=== PATIENT | male | born 1995 | race Asian ===

== ENCOUNTER 2017-12-02 14:10 | Inpatient (IN) | payer OTHER ==
[~2017-12-02] VITALS: Ht 182.9 cm; Wt 60.8 kg
[2017-12-02 15:13] LABS: BASO % 0.2 %; BASO ABS # 0.01 K/uL (0-0.2); EOS % 2.4 %; EOS ABS # 0.11 K/uL (0-0.5); HEMATOCRIT 45.1 % (42-52); HEMOGLOBIN 15.8 g/dL (14.0-18.0); IG# 0.01 K/uL (0.00-0.02); LYMPH % 40.6 %; LYMPH ABS # 1.87 K/uL (1.2-3.4); MEAN CELL VOLUME 87.6 fL (80-100); MEAN CORPUSCULAR HEMOGLOBIN 30.7 pg (25-34); MEAN PLATELET VOLUME 10.3 fL (7.4-10.4); MONO % 9.5 %; MONO ABS # 0.44 K/uL (0.11-0.59); NEUT % 47.1 %; NEUT ABS # 2.17 K/uL (1.4-6.5); PLATELET COUNT 232 K/uL (130-400); RED CELL DISTRIBUTION WIDTH CV 13.1 % (11.5-14.5); WHITE BLOOD COUNT 4.61 K/uL (4.8-10.8)
[2017-12-02 15:31] LABS: ALBUMIN 4.3 gm/dl (3.4-5.0); CALCIUM 8.7 mg/dl (8.5-10.1); CREATININE 0.93 mg/dl (0.60-1.40); POTASSIUM 3.5 mmol/L (3.5-5.1)
--- NOTE | 2017-12-02 15:34 | EMERGENCY ROOM VISIT NOTE ---
History Report prepared by Rachel: Kaylee Omer Under the Supervision of: Dr. Cullen Miranda D.O. First contact with patient: 14:19 Chief Complaint: MENTAL HEALTH EVALUATION Stated Complaint: MENTAL HEALTH History of Present Illness The patient is a 22 year old male who presents to the Emergency Room for a mental health evaluation. The patient is currently a [employer] student. He states that he has been very stressed recently particularly about graduating and finding a job. He does not have a job lined up after graduation and states that this is his main concern. He has been having suicidal thoughts and admits to thinking about jumping off of the roof of a parking garage to kill himself. He states that he has been having thoughts but denies any intention of acting on them. These suicidal thoughts come and go as his stress level fluctuates. He denies any previous suicide attempts. He also reports trouble sleeping. He has been eating and drinking normally. Pt denies any mental health history. Pt denies headache, fevers, chest pain, shortness of breath, nausea, vomiting, diarrhea, and urinary symptoms. The patient was seen at [facility] yesterday and today. [facility] was concerned about his safety today and recommended that he come to the ED for a mental health evaluation. The patient was brought to the ED by [place] police. He was unwilling to come to the ED so a 302 petition was signed. Source of History: patient, treating provider Onset: [employer] Position: other (mental health) Quality: other (suicidal) Timing: worsening Modifying Factors (Worsening): other (stress) Associated Symptoms: No fevers, No headache, No chest pain, No SOB, No nausea, No vomiting, No diarrhea, No urinary symptoms Note: Pt admits to SI and trouble sleeping. Review of Systems See HPI for pertinent positives & negatives. A total of 10 systems reviewed and were otherwise negative. Past Medical & Surgical Medical Problems: (1) Right ankle sprain Family History No pertinent history stated. Social History Smoking Status: Never Smoker Occupation Status: [employer] student Current/Historical Medications No Active Prescriptions or Reported Meds Allergies Coded Allergies: No Known Allergies (Unverified , 12/02/17) Physical Exam Vital Signs Date Time Temp Pulse Resp B/P (MAP) Pulse Ox O2 Delivery O2 Flow Rate FiO2 12/02/17 20:41 36.6 85 18 115/59 100 Room Air 12/02/17 16:00 78 18 114/70 100 12/02/17 14:13 36.7 95 18 119/80 100 Room Air Physical Exam GENERAL: Sitting up in bed, alert, well appearing, well nourished, no distress, non-toxic EYE EXAM: normal conjunctiva OROPHARYNX: no exudate, no erythema, lips, buccal mucosa, and tongue normal and mucous membranes are moist NECK: supple, no nuchal rigidity, no adenopathy, non-tender LUNGS: Clear to auscultation. Normal chest wall mechanics HEART: no murmurs, S1 normal and S2 normal ABDOMEN: abdomen soft, non-tender, normo-active bowel sounds, no masses, no rebound or guarding. BACK: Back is symmetrical on inspection and there is no deformity, no midline tenderness, no CVA tenderness. SKIN: no rashes and no bruising UPPER EXTREMITIES: upper extremities are grossly normal. LOWER EXTREMITIES: No pitting edema. NEURO EXAM: Normal sensorium, cranial nerves II-XII grossly intact, normal speech, no gross weakness of arms, no gross weakness of legs. PSYCH: Admits to suicidal thoughts with a plan of jumping off a building. Medical Decision & Procedures Laboratory Results 12/02/17 14:56 Red Blood Count 5.15, Mean Corpuscular Volume 87.6, Mean Corpuscular Hemoglobin 30.7, Mean Corpuscular Hemoglobin Concent 35.0, Mean Platelet Volume 10.3, Neutrophils (%) (Auto) 47.1, Lymphocytes (%) (Auto) 40.6, Monocytes (%) (Auto) 9.5, Eosinophils (%) (Auto) 2.4, Basophils (%) (Auto) 0.2, Neutrophils # (Auto) 2.17, Lymphocytes # (Auto) 1.87, Monocytes # (Auto) 0.44, Eosinophils # (Auto) 0.11, Basophils # (Auto) 0.01 12/02/17 14:56 Test 12/02/17 14:56 12/02/17 15:25 White Blood Count 4.61 K/uL (4.8-10.8) Red Blood Count 5.15 M/uL (4.7-6.1) Hemoglobin 15.8 g/dL (14.0-18.0) Hematocrit 45.1 % (42-52) Mean Corpuscular Volume 87.6 fL (80-100) Mean Corpuscular Hemoglobin 30.7 pg (25-34) Mean Corpuscular Hemoglobin Concent 35.0 g/dl (32-36) Platelet Count 232 K/uL (130-400) Mean Platelet Volume 10.3 fL (7.4-10.4) Neutrophils (%) (Auto) 47.1 % Lymphocytes (%) (Auto) 40.6 % Monocytes (%) (Auto) 9.5 % Eosinophils (%) (Auto) 2.4 % Basophils (%) (Auto) 0.2 % Neutrophils # (Auto) 2.17 K/uL (1.4-6.5) Lymphocytes # (Auto) 1.87 K/uL (1.2-3.4) Monocytes # (Auto) 0.44 K/uL (0.11-0.59) Eosinophils # (Auto) 0.11 K/uL (0-0.5) Basophils # (Auto) 0.01 K/uL (0-0.2) RDW Standard Deviation 42.0 fL (36.4-46.3) RDW Coefficient of Variation 13.1 % (11.5-14.5) Immature Granulocyte % (Auto) 0.2 % Immature Granulocyte # (Auto) 0.01 K/uL (0.00-0.02) Anion Gap 7.0 mmol/L (3-11) Est Creatinine Clear Calc Drug Dose 112.8 ml/min Estimated GFR () 134.6 Estimated GFR (Non- 116.1 BUN/Creatinine Ratio 16.4 (10-20) Calcium Level 8.7 mg/dl (8.5-10.1) Total Bilirubin 1.2 mg/dl (0.2-1) Direct Bilirubin 0.2 mg/dl (0-0.2) Aspartate Amino Transf (AST/SGOT) 15 U/L (15-37) Alanine Aminotransferase (ALT/SGPT) 17 U/L (12-78) Alkaline Phosphatase 87 U/L (45-117) Total Protein 7.7 gm/dl (6.4-8.2) Albumin 4.3 gm/dl (3.4-5.0) Thyroid Stimulating Hormone (TSH) 1.170 uIu/ml (0.300-4.500) Ethyl Alcohol mg/dL < 3.0 mg/dl (0-3) Urine Color YELLOW Urine Appearance CLEAR (CLEAR) Urine pH 6.0 (4.5-7.5) Urine Specific [place] 1.026 (1.000-1.030) Urine Protein NEG (NEG) Urine Glucose (UA) NEG (NEG) Urine Ketones TRACE (NEG) Urine Occult Blood NEG (NEG) Urine Nitrite NEG (NEG) Urine Bilirubin NEG (NEG) Urine Urobilinogen NEG (NEG) Urine Leukocyte Esterase NEG (NEG) Urine Opiates Screen NEG (NEG) Urine Methadone, Qualitative NEG (NEG) Urine Barbiturates NEG (NEG) Urine Phencyclidine (PCP) Level NEG (NEG) Ur Amphetamine/Methamphetamine NEG (NEG) MDMA (Ecstasy) Screen NEG (NEG) Urine Benzodiazepines Screen NEG (NEG) Urine Cocaine Metabolite NEG (NEG) Urine Marijuana (THC) NEG (NEG) Laboratory results per my review. ED Course ED COURSE: Vital signs were reviewed and showed normal vitals. The patients medical record was reviewed The above diagnostic studies were performed and reviewed. ED treatments and interventions as stated above. 1422: The patient was evaluated in room A8. A complete history and physical examination was performed. 1750: Upon reevaluation, the patient is resting comfortably. I tried to explain the difference between a 302 vs a 201. The patient did not comprehend so the psychiatric liaison will go back in to explain again. Based on the patients age, coexisting illnesses, exam and lab findings the decision to treat as an inpatient was made. The patient remained stable while under my care. The patient will be evaluated for further management. 2033: The patient has been accepted to [facility] for further management. Medical Decision Differential diagnosis: Etiologies such as mood disorder, infection, hypoglycemia, electrolyte abnormalities, cardiac sources, intracerebral event, toxicologic, neurologic, as well as others were entertained. Patient is a 22-year-old male who presents to ER referred in by As He Admitted to Having Suicidal Ideations with a Plan of Jumping off a Parking Garage. He Admits to Having These Thoughts before in the past. Patient Notes That He Does Not Want to Stay Would Rather Go Home As He Has To Meet His Parents This Weekend. He Has Been Very Stressful Multiple Things. CBC All BMP, LFTs, Bilirubin and TSH Was Normal. Alcohol Is Negative. UA Was Negative. Patient Was Updated at Bedside. He Was Evaluated by Kaelyn. He Did Not Want to Come in and consequently a 302 petition was signed. She was updated at bedside by myself. He was admitted for further workup on . Medication Reconcilliation Current Medication List: was personally reviewed by me Blood Pressure Screening Patient's blood pressure: Normal blood pressure Impression Primary Impression: Suicidal ideation Scribe Attestation The scribe's documentation has been prepared under my direction and personally reviewed by me in its entirety. I confirm that the note above accurately reflects all work, treatment, procedures, and medical decision making performed by me. Departure Information Dispostion Mental Health Acute Care Prescriptions No Active Prescriptions or Reported Meds Referrals No Doctor, Assigned (PCP) Patient Instructions [facility]
[2017-12-02 15:42] LABS: TOTAL PROTEIN 7.7 gm/dl (6.4-8.2)
[2017-12-02] MEDS ORDERED: NURSING VERBAL MED ORDER ONE (20:30)
[2017-12-02 20:41] VITALS: O2SAT 100
[2017-12-02] MEDS ORDERED: ALUMINUM/MAGNESIUM SUSP 30 ML UDC PO PRN (20:45)
[2017-12-02] MEDS ORDERED: SODIUM CHLORIDE 0.65% NA SOLN 45 ML (OCEAN) PRN (20:45)
[2017-12-02] MEDS ORDERED: hydrOXYzine HCL 25 MG TAB PO PRN (20:45)
[2017-12-02] MEDS ORDERED: BISMUTH SUBSALICYLATE PER ML OMNICELL CHARGE PO PRN (20:45)
[2017-12-02] MEDS ORDERED: MAGNESIUM HYDROXIDE SUSP 30 ML UDC PO PRN (20:45)
[2017-12-02] MEDS ORDERED: ACETAMINOPHEN 325 MG TAB PO PRN (20:45)
[2017-12-02 21:32] VITALS: BP 120/75; PULSE 88; TEMP 36.7; Ht 182.9 cm; Wt 60.8 kg
[2017-12-03] MEDS: hydrOXYzine HCL 25 MG TAB PO PRN ×2 (00:03→01:37)
[2017-12-03 07:08] VITALS: BP_SYST 101; BP_SYST 117; BP_DIAS 60; BP_DIAS 81; PULSE 65; PULSE 80; TEMP 36.8
--- NOTE | 2017-12-03 13:00 | Psychiatric History & Physical ---
History Date of Service Dec 03, 2017. Identifying Data Juan Berry is a 22-year-old male [employer] senior admitted involuntarily on Dec 02, 2017 at 20:27 after being brought to the emergency department on a warrant completed by [facility] due to reports of depression with suicidality. Information is gathered from the patient and considered to be reliable. Chief Complaint "Stress post graduation". 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 He says that he has been under stress because he is to graduate this semester, but does not yet have a job. He feels some pressure from his family to get a job and says that he is struggling because "I'm not a talker" and in interviews is not performing well. He also says that he is having difficulty "keeping relationships" but denies that this is a primary stressor. The patient has been increasingly depressed, having thoughts of suicide and on December 01 presented to [facility] to see about getting a counselor. He was given an appointment for December 02 at which point he saw Lien Marino PhD And told her that he was depressed, felt useless to the world felt that life was boring, and was having specific thoughts to access the roof of the parking deck and jump. He admitted that he had researched this, that that would be the least painful means of committing suicide. He also reported to her that his depression got worse on the , after coming to [facility], because his girlfriend broke up with him. A 302 petition her statement was filled out by Lien Marino at that time, a warrant was issued, and the patient was brought to our emergency department. Today the patient is somewhat distressed about being in the hospital and minimizing his symptoms. He admits that he is having suicidal thoughts, but it' s not the first time, and he has no plan or intent to follow through. He admits that the pressure from his parents to get a job as a primary problem. His parents are from [place], speaks no Croatian but are currently in [place], with plans to come here to see him. He is an only child, and feels a great deal of pressure to get a job. He says he has spoken with his parents about the difficulty finding a job and they tell him to keep trying. In their culture , it is not acceptable to be depressed and not acceptable not to succeed. He says they do not acknowledge mental illness and do not support the use of medications. He does not want his parents to know he is in the hospital, at least of all for mental health reasons. He does not want to involve his roommates or any of his friends in his treatment. Today he describes his mood as "low" but does not want to use the word depressed. He reports disturbed sleep with difficulty falling asleep, sometimes laying awake thinking until 4:00 in the morning. He generally finds he gets 4 or 5 hours of sleep per night and finds this acceptable. His appetite has been "not very hungry", eating 2 meals per day and having a small weight loss that is unspecified. His energy is "high" and enjoys playing basketball 3 times per week. He denies crying spells. He does acknowledge some anxiety, specific to his job search concerns. He used to cope with this by playing a lot of video games which she has not been doing lately he denies ever having had any auditory or visual hallucinations. He denies having had panic attacks. He denies self-injurious behaviors. He denies any bipolar symptoms including discrete episodes of euphoric mood, sleeplessness or pleasure seeking behaviors. Past Psychiatric History Current OP Treatment: no current treatment Prior OP Treatment: no prior treatment Prior Psych Hospitalizations: none Access to a Gun: No Suicide Attempts: No Past Medication Trials None Past Medical/Surgical History History of Concussion/Seizure: No (1) none Allergies Allergies: Coded Allergies: No Known Allergies (Unverified , 12/02/17) Home Medications No Active Prescriptions or Reported Meds Family History History of Suicide: No History of Substance Abuse: No Psychiatric History: No Alcohol Use Alcohol Use In Past 12 Months: Yes (2-3x/week; approx 1-2 glasses of wine) AUDIT Total Score: 3 Smoking Use Smoking Status: Never Smoker Substance History Denies Personal History [place] Childhood: Raised in [place] by both parents. He is an only child Education: started college (will graduate in March with a degree in mechanical engineering) Work History: Does not work outside of school Relationship History: never Children: none Legal History: none Psychological Trauma History: Denies Hx Traumatic Event Review of Systems Constitutional: denies no symptoms reported, denies see HPI, denies chills, denies diaphoresis, denies fever, denies malaise, denies weakness, denies other Eyes: denies: no symptoms, as stated in HPI, eye pain, tearing, itching, redness, discharge, double vision, visual changes, blurred vision, photophobia, other ENT: denies: no symptoms reported, see HPI, ear pain, ear discharge, loss of hearing, tinnitus, nasal pain, nasal congestion, rhinorrhea, epistaxis, sore throat, stidor, throat swelling, mouth pain, mouth swelling, dental pain, gum swelling, other Cardiovascular: denies: no symptoms reported, see HPI, chest pain, chest tightness, chest pressure, diaphoresis, palpitations, syncope, other Respiratory: denies: no symptoms reported, see HPI, cough, orthopnea, short of breath, stridor, wheezing, sputum production, cyanosis, CLARK, PND, other Gastrointestinal: denies no symptoms reported, denies see HPI, denies abdominal pain, denies constipation, denies diarrhea, denies nausea, denies vomiting, denies other Genitourinary - Male: denies: no symptoms, see HPI, rash, amenorrhea, penile itching, penile discharge, testicular pain, testicular swelling, impotence, other Musculoskeletal: denies no symptoms reported, denies see HPI, denies back pain , denies gout, denies joint pain, denies joint swelling, denies muscle pain, denies muscle stiffness, denies neck pain, denies other Integumentary: denies no symptoms reported, denies see HPI, denies change in color, denies change in hair/nails, denies dryness, denies lesions, denies lumps , denies rash, denies other Neurologic: denies: no symptoms, see HPI, headache, numbness, paresthesias, pre -existing deficit, seizure, tingling, tremors, general weakness, tics, focal weakness, vertigo, lethargy, memory loss, dizziness, other Endocrine: denies: no symptoms, as stated in HPI, cold intolerance, heat intolerance, hair changes, goiter, polydipsia, polyuria, skin changes, other Hematologic / Lymphatic: denies: no symptoms, as stated in HPI, abnormal clotting, adenopathy, anemia, easy bleeding, easy bruising, gums bleeding, petechiae, other Examination Physical Examination Exam performed by Dr. Miranda in the emergency Department has been reviewed and accepted as medical clearance for our unit Vital Signs Vital Signs Past 12 Hours Date Time Temp Pulse Resp B/P (MAP) Pulse Ox O2 Delivery O2 Flow Rate FiO2 12/03/17 07:08 36.8 65 16 101/60 80 117/81 Laboratory Results Last 24 Hours Test 12/02/17 14:56 12/02/17 15:25 White Blood Count 4.61 K/uL Red Blood Count 5.15 M/uL Hemoglobin 15.8 g/dL Hematocrit 45.1 % Mean Corpuscular Volume 87.6 fL Mean Corpuscular Hemoglobin 30.7 pg Mean Corpuscular Hemoglobin Concent 35.0 g/dl Platelet Count 232 K/uL Mean Platelet Volume 10.3 fL Neutrophils (%) (Auto) 47.1 % Lymphocytes (%) (Auto) 40.6 % Monocytes (%) (Auto) 9.5 % Eosinophils (%) (Auto) 2.4 % Basophils (%) (Auto) 0.2 % Neutrophils # (Auto) 2.17 K/uL Lymphocytes # (Auto) 1.87 K/uL Monocytes # (Auto) 0.44 K/uL Eosinophils # (Auto) 0.11 K/uL Basophils # (Auto) 0.01 K/uL RDW Standard Deviation 42.0 fL RDW Coefficient of Variation 13.1 % Immature Granulocyte % (Auto) 0.2 % Immature Granulocyte # (Auto) 0.01 K/uL Sodium Level 138 mmol/L Potassium Level 3.5 mmol/L Chloride Level 105 mmol/L Carbon Dioxide Level 26 mmol/L Anion Gap 7.0 mmol/L Blood Urea Nitrogen 15 mg/dl Creatinine 0.93 mg/dl Est Creatinine Clear Calc Drug Dose 112.8 ml/min Estimated GFR () 134.6 Estimated GFR (Non- 116.1 BUN/Creatinine Ratio 16.4 Random Glucose 88 mg/dl Calcium Level 8.7 mg/dl Total Bilirubin 1.2 mg/dl Direct Bilirubin 0.2 mg/dl Aspartate Amino Transf (AST/SGOT) 15 U/L Alanine Aminotransferase (ALT/SGPT) 17 U/L Alkaline Phosphatase 87 U/L Total Protein 7.7 gm/dl Albumin 4.3 gm/dl Thyroid Stimulating Hormone (TSH) 1.170 uIu/ml Ethyl Alcohol mg/dL < 3.0 mg/dl Urine Color YELLOW Urine Appearance CLEAR Urine pH 6.0 Urine Specific [place] 1.026 Urine Protein NEG Urine Glucose (UA) NEG Urine Ketones TRACE Urine Occult Blood NEG Urine Nitrite NEG Urine Bilirubin NEG Urine Urobilinogen NEG Urine Leukocyte Esterase NEG Urine Opiates Screen NEG Urine Methadone, Qualitative NEG Urine Barbiturates NEG Urine Phencyclidine (PCP) Level NEG Ur Amphetamine/Methamphetamine NEG MDMA (Ecstasy) Screen NEG Urine Benzodiazepines Screen NEG Urine Cocaine Metabolite NEG Urine Marijuana (THC) NEG Mental Examination During interview pt is: alert and oriented, guarded Appearance: appropriately dressed, appropriately groomed Eye contact is: good Motor behavior is: no abnormal motor movements Speech: normal in rate, rhythm & volume (with accent) Affect: blunted, anxious Mood is: depressed, anxious Thought process: goal directed Thought content: reality based without delusions Suicidal thought are: present, Plan: present, Intent: denied Homicidal thoughts are: denied Hallucinations: denies auditory, denies visual Cognition: memory grossly intact, attention grossly intact, language grossly intact Intelligence estimated to be: average Insight: impaired Judgement: impaired Impression / Recommendations Impression 22-year-old [employer] student, admitted in voluntarily with depression and suicidality. The patient is attempting to minimize his symptoms today as he is shameful about his depression not wanting anyone to know. There is a significant cultural overlay to this and he also does not want his parents involved in his treatment. He wants to say that he has suicidal thoughts but no intent to follow through and has a certain degree of anger that the therapist at [facility] was focused on his suicidality and not his desire to get a therapist. He does not want to consider medications despite our discussion about the benefits of such in severe depression. He is willing for a talk therapist but is not at this point willing to complete a robust safety plan which would include having people know that he is here. I've asked him to reconsider this and reconsider involving his parents as it is as much stress to keep a secret as it is to tell them he is here. There was no act in furtherance and so he will not meet criteria for a 303 commitment. Our plan will be to develop a safety plan, incorporate the office of student affairs and continue to encourage him to involve his parents. At this time, the patient requires inpatient mental health treatment due to the acuity of his suicidal thinking with a specific plan, and the risk for self-harm if discharged. Inventory Assets Strengths: Intelligence, about to graduate from college Needs: To be connected to people Risk Factors Assessment Male: Yes : No /single/: Yes Higher / Fall in social status: No Access to guns: No Health problems: No Mental Health Diagnoses: No Substance use disorders: No Previous attempt: No Previous psychiatric stay: No Hopelessness: No Smoker: No Protective Factors Assessment : No Responsible for young children: No Employed: No Stable relationships: No Supportive family: No Recommendations (1) Major depressive disorder, single episode, severe without psychosis 12/03 - I have recommended a trial of an antidepressant which the patient declines - Coordinate with the office of student affairs - Every 15 minute checks for safety - Encourage the patient to inform his parents that he is here and have a family meeting with the seed packer - Encourage participation in group and individual counseling - The patient is here on a 302 so we will continue to gather information toward the need for further inpatient treatment - The patient will need psychiatric follow-up Dr. Nena Carrillo has personally been involved in the review of the above case and development of these recommendations. CPT Code Initial Hospital Care: 33470
[2017-12-04 06:38] VITALS: BP_SYST 100; BP_SYST 91; BP_DIAS 55; BP_DIAS 64; PULSE 54; PULSE 69; TEMP 36.4
--- NOTE | 2017-12-04 12:17 | Psychiatric Progress Notes ---
Progress Note Date of Service Dec 04, 2017. Interval History Juan Nina" is a 22-year-old male [facility] senior admitted involuntarily on Dec 02, 2017 at 20:27 after being brought to the emergency department on a warrant completed by [employer] due to reports of depression with suicidality. Information is gathered from the patient and considered to be reliable. Chief Complaint "Pretty Good". Subjective Patient was seen & assessed interval progress reviewed with Nursing. Staff reports patient has a preference to remain in the quiet room as he has been uncomfortable sharing a room while here on the unit. Staff feels the patient continues to minimize his symptoms as he is eager to return to his classes. Pt was seen today to assess progress since admission. He reports he is doing "pretty good" and has noticed improvement in his mood since his admission. He denies ongoing SI and feels that sitting in on therapy has been helpful and provides him with things to think about. Pt is direct and minimal with conversation and does not elaborate on open-ended questioning, even with encouragement. He continues to refuse the recommendation of medications and declines patient information on specific medication choices. He is questioning timeline for discharge and was informed this would become more clear after treatment team in the morning. Pt denies SI/HI at this encounter. He denies other questions or concerns today. Review of Systems Psych: denies symptoms other than stated above Constitutional: denied Cardiovascular: denied GI: denied Neurologic: denied Remainder of 10 body systems also reviewed and denied other than noted above. Sleep Information Total Hours of Sleep: 7.00 Meal Information Percent of Breakfast Consumed: 100 Percent of Lunch Consumed: 100 Percent of Dinner Consumed: 10 Mental Status Exam During interview pt is: alert and oriented, guarded (minimal participation during encounter) Appearance: appropriately dressed, appropriately groomed Eye contact is: good Motor behavior is: no abnormal motor movements Speech: normal in rate, rhythm & volume (limited elaboration with open-ended questioning) Affect: blunted, anxious Mood is: depressed, anxious, other (incongruent to his reports of "pretty good ") Thought process: goal directed, clear, coherent Thought content: reality based without delusions Suicidal thought are: denied (at this encounter, limited willingness to discuss ), Plan: present, Intent: denied Homicidal thoughts are: denied Hallucinations: denies auditory, denies visual Cognition: memory grossly intact, attention grossly intact, language grossly intact Intelligence estimated to be: average Insight: limited Judgement: limited Impression Pt reports continued improvement. He is unwilling for medications at this time , but states he would be willing to continue to see a therapist occasionally. Ongoing desire to not want his parents involved in his treatment. Pt states they have worked on safety planning during group, but to my understanding, pt has not shared about his admission with friends or family. Our plan would be to encourage him to involve his parents which would help him create an adequate safety plan. With current reported improvement in symptoms, it is unlikely that patient will meet criteria for 303 commitment. At this time, the patient requires inpatient mental health treatment due to the severity of his SI and specific plan, and the risk for self-harm if discharged prematurely Plan (1) Major depressive disorder, single episode, severe without psychosis 12/03 - I have recommended a trial of an antidepressant which the patient declines - Coordinate with the office of student affairs - Every 15 minute checks for safety - Encourage the patient to inform his parents that he is here and have a family meeting with the business line controller - Encourage participation in group and individual counseling - The patient is here on a 302 so we will continue to gather information toward the need for further inpatient treatment - The patient will need psychiatric follow-up 12/04 - Pt continues to decline medications for his depressive symptoms - Encourage patient communicate with his parents about his admission - Continue to encourage participation in group programming while on the unit. Dr. Nena Carrillo has personally been involved in the review of the above case and development of these recommendations. Discharge / Aftercare Planning Primary Care Physician: Name: [facility] Therapist: Name: PHILIP Special Procedures Tech: Name: Renetta Titus ([facility]) Visit Code E&M Code: 42698 Inventory Assets Strengths: Intelligence, about to graduate from college Needs: To be connected to people Risk Factors Assessment Male: Yes : No /single/: Yes Higher / Fall in social status: No Health problems: No Mental Health Diagnoses: No Substance use disorders: No Previous attempt: No Previous psychiatric stay: No Hopelessness: No Smoker: No Protective Factors Assessment : No Responsible for young children: No Employed: No Stable relationships: No Supportive family: No Data Vital Signs Last 24 Hrs: Date Time Temp Pulse Resp B/P (MAP) Pulse Ox O2 Delivery O2 Flow Rate FiO2 2/1/18 06:38 36.4 54 18 100/64 69 91/55 Meds Administered Last 24 Hrs: Meds Administered (Past 24Hrs) Medications (Trade) Dose Ordered Sig/Aaron Route Start Time Stop Time Status Last Admin Dose Admin Hydroxyzine HCl (Vistaril Tab) 50 mg HSZ PRN PO 12/02/17 20:45 01/01/18 20:44 12/03/17 01:37 50 MG
[2017-12-05 06:41] VITALS: BP_SYST 85; BP_SYST 89; BP_DIAS 51; BP_DIAS 57; PULSE 53; PULSE 81; TEMP 36.2
--- NOTE | 2017-12-05 10:26 | Psych Management Progress Note ---
Psychiatry Miscellaneous Date of Service: Dec 05, 2017. Patient seen, MS assessed. Rates mood as 10/10 and relaxed but affect is quite blunted. Thick accent. Remains guarded in interactions but consistently denying SI, issue is that on 302 and won't engage in safety planning--refusing contact with parents and roommates which is likely cultural but ideally he would identify 1 support other than [employer], particularly if weekend discharge.
--- NOTE | 2017-12-05 14:03 | Psychiatric Progress Notes ---
Progress Note Date of Service Dec 05, 2017. Interval History Juan Nina" is a 22-year-old male [facility] senior admitted involuntarily on Dec 02, 2017 at 20:27 after being brought to the emergency department on a warrant completed by [employer] due to reports of depression with suicidality. Information is gathered from the patient and considered to be reliable. Chief Complaint "I'm wonderful". Subjective Patient was seen & assessed interval progress reviewed with Treatment Team. Staff reports he continues to decline involvement of room mates or friends in his hospitalization. Pt reportedly had a 1-to-1 with a counselor last evening in which he was able to discuss his concerns with opening up to his friends. Pt has reported becoming invested in relationships quickly, which has caused him to stop relying on others. Pt was seen today to discuss progress since admission. Pt states he is "wonderful" and doing much better. We were able to discuss therapy and patient reported he would reach out when he felt he needed help. We discussed importance of having supports to maintain the progress he has made on the unit and patient verbalized understanding. He is hesitant to set up aftercare as he is unsure of his schedule, but he agrees to initial therapy appointment. Pt becomes irritable when we discuss that he will not be discharged today. Pt continues to be unwilling to involve supports in a safety plan discussion prior to discharge and is requesting to take the bus home. Pt states, "I'm confident I can manage this myself". Pt was encouraged to think about supports he could involve and told we would discuss the topic again tomorrow. Pt denies SI/HI, thoughts of self-harm, and symptoms of psychosis. He denies other concerns at this encounter. Review of Systems Psych: denies symptoms other than stated above Constitutional: denied Cardiovascular: denied GI: denied Neurologic: denied Remainder of 10 body systems also reviewed and denied other than noted above. Sleep Information Total Hours of Sleep: 5.75 Meal Information Percent of Breakfast Consumed: 100 Percent of Lunch Consumed: 100 Percent of Dinner Consumed: 100 Mental Status Exam During interview pt is: alert and oriented, uncooperative (not agreeable to recommendations) Appearance: appropriately dressed, appropriately groomed Eye contact is: good Motor behavior is: no abnormal motor movements Speech: normal in rate, rhythm & volume Affect: blunted, irritable (with discussion of involving supports), anxious Mood is: depressed, anxious Thought process: goal directed, clear, coherent Thought content: reality based without delusions Suicidal thought are: denied (at this encounter), Plan: present, Intent: denied Homicidal thoughts are: denied Hallucinations: denies auditory, denies visual Cognition: memory grossly intact, attention grossly intact, language grossly intact Intelligence estimated to be: average Insight: limited Judgement: limited Impression Ongoing improvement in mood, but continues to decline involvement of supports. Discussed with patient the desire to have someone involved in a meeting on safety planning prior to discharge, which he declines. Pt states he will share with his friends when he is ready. Pt is however agreeable to therapy referral and will allow us to schedule an initial appointment. Pt continues to decline medications. It is unlikely patient will meet criteria for 303 commitment, however he requires ongoing treatment until the expiration of his 302 as he is a high risk for self-harm if discharged prematurely with unwillingness for treatment and aftercare recommendations. Plan (1) Major depressive disorder, single episode, severe without psychosis 12/03 - I have recommended a trial of an antidepressant which the patient declines - Coordinate with the office of student affairs - Every 15 minute checks for safety - Encourage the patient to inform his parents that he is here and have a family meeting with the rim fire charger operator - Encourage participation in group and individual counseling - The patient is here on a 302 so we will continue to gather information toward the need for further inpatient treatment - The patient will need psychiatric follow-up 12/04 - Pt continues to decline medications for his depressive symptoms - Encourage patient communicate with his parents about his admission - Continue to encourage participation in group programming while on the unit. 12/05 - Declines medications - Encourage communication with an outpatient support - Scheduled initial therapy appointment as he is now agreeable - Expiration of 302 on 12/07. Discharge / Aftercare Planning Primary Care Physician: Name: [facility] Appointment Notes: As needed Therapist: Name: PHILIP Prep Room Supervisor: Name: Renetta Titus ([facility]) Other: Name of Appointment #1: Call about your car at discharge, ask for Albaro Name of Appointment #2: [facility], V[facility]ctor Velas[facility] Visit Code E&M Code: 46028 Inventory Assets Strengths: Intelligence, about to graduate from college Needs: To be connected to people Risk Factors Assessment Male: Yes : No /single/: Yes Higher / Fall in social status: No Health problems: No Mental Health Diagnoses: No Substance use disorders: No Previous attempt: No Previous psychiatric stay: No Hopelessness: No Smoker: No Protective Factors Assessment : No Responsible for young children: No Employed: No Stable relationships: No Supportive family: No Data Vital Signs Last 24 Hrs: Date Time Temp Pulse Resp B/P (MAP) Pulse Ox O2 Delivery O2 Flow Rate FiO2 12/05/17 06:41 36.2 53 16 89/57 81 85/51
[2017-12-06 07:02] VITALS: BP_SYST 104; BP_SYST 95; BP_DIAS 60; BP_DIAS 67; PULSE 53; PULSE 78; TEMP 36.4
--- NOTE | 2017-12-06 08:50 | Psychiatric Progress Notes ---
Progress Note Date of Service Dec 06, 2017. Interval History Juan Nina" is a 22-year-old male [facility] senior admitted involuntarily on Dec 02, 2017 at 20:27 after being brought to the emergency department on a warrant completed by [employer] due to reports of depression with suicidality. Information is gathered from the patient and considered to be reliable. Chief Complaint "Normally I would say good, but kind of stressful". Subjective Patient was seen & assessed interval progress reviewed with Nursing. Staff report he continues to refuse medication, a family meeting, and would not allow staff to contact any of his supports. He remains focused on discharge, stating that he wants to get back to school. He is blaming for being hospitalized. After much discussion with staff yesterday, he did agree [facility], but continues to state that he doesn't feel he needs. Today [place] is focused on discharge, saying he feels stressed being in the hospital, and doesn't "want the hospital getting involved, talking with anyone about my personal situation." He continues to refuse to involve anyone in his treatment for a meeting, including friends or family. He gives various reasons for this, saying "all my friends are busy, they're graduating, it will mess up their plans...I will talk to people when I feel like I need to." He continues to minimize his suicidal thoughts, saying "that was before." He says he won't be at suicidal, because he will busy, and therefore doesn't need to work on a safety plan. Despite encouragement to process his concerns and reconsider, he remains argumentative and unwilling to engage in treatment. He remains unwilling to contact his parents, "I'll tell them what I want to when I' m willing to tell them," although he states he knows they will find out from the insurance company communication. Extensive discussion was held regarding the treatment recommendations, and ways to improve his discharge safety plan, but the patient remained unwilling to engage further in treatment, and continued to push for immediate discharge. He ultimately had to be asked to leave the interview room, as he continued to ask why he couldn't be discharged immediately, despite multiple explanations. Sleep Information Total Hours of Sleep: 6.50 Meal Information Percent of Breakfast Consumed: 100 Percent of Lunch Consumed: 100 Percent of Dinner Consumed: 100 Mental Status Exam During interview pt is: alert and oriented, uncooperative (not agreeable to recommendations) Appearance: appropriately dressed, appropriately groomed Eye contact is: good Motor behavior is: no abnormal motor movements Speech: normal in rate, rhythm & volume Affect: irritable (argumentative) Mood is: other ("stressed") Thought process: goal directed, perseveration Thought content: preoccupation (with discharge) Suicidal thought are: denied Homicidal thoughts are: denied Hallucinations: denies auditory, denies visual Cognition: memory grossly intact, attention grossly intact, language grossly intact Intelligence estimated to be: average Insight: limited Judgement: limited Impression The patient reports improvement in mood and suicidal thoughts, but shows very poor insight and continues to decline involvement of supports. Multiple staff have discussed the recommendations to have someone involved in a meeting on safety planning prior to discharge, which he continues to refuse. Pt states he will share with his family and friends when he is ready. He has been referred for therapy at [facility], but continues to decline medications. It is unlikely patient will meet criteria for 303 commitment, however he requires ongoing treatment until the expiration of his 302 as he is a high risk for self-harm if discharged prematurely with unwillingness for treatment and aftercare recommendations. He was advised again today for treatment recommendations, and that if he leaves without a better plan in place, and would be AGAINST MEDICAL ADVICE. He is aware that his parents will receive notification from his insurance company that he's been hospitalized, but even in the face of that, refuses to allow any contact with them. Plan (1) Major depressive disorder, single episode, severe without psychosis 12/03 - I have recommended a trial of an antidepressant which the patient declines - Coordinate with the office of student affairs - Every 15 minute checks for safety - Encourage the patient to inform his parents that he is here and have a family meeting with the air antisubmarine officer - Encourage participation in group and individual counseling - The patient is here on a 302 so we will continue to gather information toward the need for further inpatient treatment - The patient will need psychiatric follow-up 12/04 - Pt continues to decline medications for his depressive symptoms - Encourage patient communicate with his parents about his admission - Continue to encourage participation in group programming while on the unit. 12/05 - Declines medications. - Encourage communication with an outpatient support - Scheduled initial therapy appointment as he is now agreeable - Expiration of 302 on 12/07. 12/06 - Patient continues to refuse medications, a family meeting, and will not allow staff to contact his family, any of his local friends or supports. Again reviewed the importance of involving his supports, and having a good safety plan at discharge, and we will continue to encourage him to engage in treatment to maximize his chances of success. - Referred to [facility] for therapy; initial appointment 2017. Also has an appointment with [facility] Discharge / Aftercare Planning Primary Care Physician: Name: [facility] Appointment Notes: As needed Therapist: Name: [facility] Date of Appointment: Dec 23, 2017 Time of Appointment: 12:30 pm Appointment Notes: [address] [facility] [address] [place] [id number] [address] Service Mail Processor: Name: Veda Titus ([facility]) Other: Name of Appointment #1: Call about your car at discharge, ask for Albaro Name of Appointment #2: [facility] - [place] Date of Appointment #2: Dec 09, 2017 Time of Appointment #2: 11:00 am Appointment #2 Notes: [address] [place] [address] Visit Code E&M Code: 34814 Inventory Assets Strengths: Intelligence, about to graduate from college Needs: To be connected to people Risk Factors Assessment Male: Yes : No /single/: Yes Higher / Fall in social status: No Health problems: No Mental Health Diagnoses: No Substance use disorders: No Previous attempt: No Previous psychiatric stay: No Hopelessness: No Smoker: No Protective Factors Assessment : No Responsible for young children: No Employed: No Stable relationships: No Supportive family: No Data Vital Signs Last 24 Hrs: Date Time Temp Pulse Resp B/P (MAP) Pulse Ox O2 Delivery O2 Flow Rate FiO2 12/06/17 07:02 36.4 53 16 95/60 78 104/67
[2017-12-07 06:59] VITALS: BP_SYST 103; BP_SYST 119; BP_DIAS 64; BP_DIAS 76; PULSE 62; PULSE 97; TEMP 36.5
--- NOTE | 2017-12-07 07:05 | Discharge Instructions ---
Discharge Information Report Includes Report will include the: Discharge Instructions & Summary Admission Admission Date / Time: Dec 02, 2017 at 20:27 Reason for Admission: Major Depressive Disorder Discharge Discharge Diagnosis / Problem: Depression, suicidal ideation Condition at Discharge: Fair Discharge Goals Goal(s): Improve function, Improve disease control, Learn about illness, Therapeutic intervention, Specific goals (safety planning) Activity Recommendations Activity Limitations: per Instructions/Follow-up section . Instructions / Follow-Up Instructions / Follow-Up . SPECIAL CARE INSTRUCTIONS: 1. Follow through with your scheduled aftercare appointments. If unable to keep an appointment, please call to reschedule. We recommended that you consider medication for depression and follow up with an outpatient psychiatrist , which you declined. You have been referred for outpatient psychotherapy. We recommended a family meeting with your parents, which you declined. 2. Take your medication only as prescribed. Medication should not be changed or stopped without the approval of your doctor. In the event of worsening symptoms or concerns about side effects, contact your doctor immediately. 3. Utilize new healthy coping skills, anger management skills, and stress management skills learned during your hospitalization. Journal feelings and process them with a support person. Identify stressors or situations that may result in relapse, deterioration or inappropriate behaviors and develop a plan to deal with those issues. 4. If your coping skills are ineffective and you are in crisis, contact your outpatient providers for direction. If unable to reach your providers, please call the CAN HELP LINE AT or go to the closest Emergency Room. 5. Avoid alcohol and un-prescribed drugs. 6. You have been provided with the Mental Health Advance Directives Pamphlet for your review. AFTERCARE APPOINTMENTS: * Please call your insurance company prior to your scheduled appointment to confirm your aftercare providers are covered. Take your insurance information to your appointments. . Discharge / Aftercare Planning Primary Care Physician: Name: [facility] Appointment Notes: As needed Therapist: Name Of Therapist: Luan Pereira - [facility] Date of Appointment: Dec 23, 2017 Time of Appointment: 12:30 pm Appointment Comments: [address] [facility] [id number] [employer] Apprent[facility] Other: Name of Appointment #1: Call about your car at discharge, ask for Albaro Name of Appointment #2: [facility] Anette Rosado Date of Appointment #2: Dec 09, 2017 Time of Appointment #2: 11:00 am Appointment #2 Notes: [address] [place] [address] . Follow-Up Care Plan for Follow-Up Care: See above. Current Hospital Diet Patient's current hospital diet: Regular Diet Discharge Diet Recommended Diet: Regular Diet Procedures Procedures Performed: No Pending Studies Pending Studies at Discharge: No Medical Emergencies . Who to Call and When: Medical Emergencies: For questions or emergencies related to your hospital stay, please contact the Inpatient Behavioral Health Unit at [phone]. A outreach clinician is on-call 26/05 for the Behavioral Health Unit for emergencies At any time you feel your situation is an emergency, you may also call 911 immediately. . Non-Emergent Contact Non-Emergency issues call your: Therapist Past History Medical & Surgical History: (1) none Advance Directives Existing Advance Directive: No Do You Have an Existing Mental: No Existing Living Will: No Existing Power of Best Second Jobs: No Advance Directives Info Given: To Pt/S.O. Advance Directives Reason: Declines as Mental Health Visit. Discharge Summary Admission HPI Per the Admitting provider: The patient is a 22-year-old [employer] [employer] [facility] senior in mechanical engineering who is not currently in any kind of psychiatric treatment. He says that he has been under stress because he is to graduate this semester, but does not yet have a job. He feels some pressure from his family to get a job and says that he is struggling because "I'm not a talker" and in interviews is not performing well. He also says that he is having difficulty "keeping relationships" but denies that this is a primary stressor. The patient has been increasingly depressed, having thoughts of suicide and on December 01 presented to [facility] to see about getting a counselor. He was given an appointment for December 02 at which point he saw Lien Marino PhD And told her that he was depressed, felt useless to the world felt that life was boring, and was having specific thoughts to access the roof of the parking deck and jump. He admitted that he had researched this, that that would be the least painful means of committing suicide. He also reported to her that his depression got worse on the , after coming to [facility], because his girlfriend broke up with him. A 302 petition her statement was filled out by Lien Marino at that time, a warrant was issued, and the patient was brought to our emergency department. Today the patient is somewhat distressed about being in the hospital and minimizing his symptoms. He admits that he is having suicidal thoughts, but it' s not the first time, and he has no plan or intent to follow through. He admits that the pressure from his parents to get a job as a primary problem. His parents are from [place], speaks no [place]ian but are currently in [place], with plans to come here to see him. He is an only child, and feels a great deal of pressure to get a job. He says he has spoken with his parents about the difficulty finding a job and they tell him to keep trying. In their culture , it is not acceptable to be depressed and not acceptable not to succeed. He says they do not acknowledge mental illness and do not support the use of medications. He does not want his parents to know he is in the hospital, at least of all for mental health reasons. He does not want to involve his roommates or any of his friends in his treatment. Today he describes his mood as "low" but does not want to use the word depressed. He reports disturbed sleep with difficulty falling asleep, sometimes laying awake thinking until 4:00 in the morning. He generally finds he gets 4 or 5 hours of sleep per night and finds this acceptable. His appetite has been "not very hungry", eating 2 meals per day and having a small weight loss that is unspecified. His energy is "high" and enjoys playing basketball 3 times per week. He denies crying spells. He does acknowledge some anxiety, specific to his job search concerns. He used to cope with this by playing a lot of video games which she has not been doing lately he denies ever having had any auditory or visual hallucinations. He denies having had panic attacks. He denies self-injurious behaviors. He denies any bipolar symptoms including discrete episodes of euphoric mood, sleeplessness or pleasure seeking behaviors. Admission Exam Per the Admitting provider: Please see admission H&P. Consultations None. Hospital Course (1) Major depressive disorder, single episode, severe without psychosis 12/03 - I have recommended a trial of an antidepressant which the patient declines - Coordinate with the office of student affairs - Every 15 minute checks for safety - Encourage the patient to inform his parents that he is here and have a family meeting with the electronics detail draftsperson - Encourage participation in group and individual counseling - The patient is here on a 302 so we will continue to gather information toward the need for further inpatient treatment - The patient will need psychiatric follow-up 12/04 - Pt continues to decline medications for his depressive symptoms - Encourage patient communicate with his parents about his admission - Continue to encourage participation in group programming while on the unit. 12/05 - Declines medications. - Encourage communication with an outpatient support - Scheduled initial therapy appointment as he is now agreeable - Expiration of 302 on 12/07. 12/06 - Patient continues to refuse medications, a family meeting, and will not allow staff to contact his family, any of his local friends or supports. Again reviewed the importance of involving his supports, and having a good safety plan at discharge, and we will continue to encourage him to engage in treatment to maximize his chances of success. - Referred to [facility] for therapy; initial appointment 2017. Also has an appointment with [facility] 12/07 - Patient continues to refuse medications and contact with his parents, who are in the [place] visiting from [place]. He did agree to a meeting with a friend yesterday, who agreed to check in on him after discharge. His 302 involuntary commitment will today, and he does not wish to stay for further treatment , nor is he committable under a 303. He did agree to outpatient therapy and has been referred to [facility]. He would like to return to class tomorrow. Risk Factors Assessment Male: Yes : No /single/: Yes Higher / Fall in social status: No Health problems: No Mental Health Diagnoses: No Substance use disorders: No Previous attempt: No Previous psychiatric stay: No Hopelessness: No Smoker: No Protective Factors Assessment : No Responsible for young children: No Employed: No Stable relationships: No Supportive family: No Good rapport with provider: No Absence of risk factors above: Yes (risk factors were mitigated by admission to the inpatient unit, recommending medication for mood which he declined, recommending a family meeting with his parents which he declined, involving him in groups and therapy, working on healthy coping skills and a discharge safety plan, referring him for outpatient psychotherapy, and a family meeting with a friend who he identified as a support. He is denying suicidal thoughts, and is focused on discharge, wanting to return to class. He is completing his ADLs independently. His 302 will this evening, and he does not meet criteria for ongoing commitment, and is unwilling to sign in voluntarily. He is no longer at acute risk for harm to himself, so can be discharged and managed as an outpatient at this time. He does not have significant risk factors for harm to others.) Day of Discharge Assessment Hospital course: On admission, the patient was resistant to all treatment recommendations, stating that he did not want to take medication and did not feel he needed to be in the hospital. He minimized his symptoms and the events that led to his admission, stating he wanted to be discharged so he could return to class. He had minimal group attendance and participation. He refused recommendations for a trial of an antidepressant and refused to allow staff to contact his family or involve any of his local supports or friends. His affect was blunted and he was guarded in interactions, but consistently denied suicidal thoughts. He initially refused to engage in safety planning, but with continued staff education and support, agreed to a referral for outpatient therapy and to involvement of one of his friends who lives near him. He was eating and sleeping well, completing his ADLs independently, and remained focused on discharge throughout his stay. He complained of being bored on the unit, and stressed about missing school. At times he was somewhat intrusive with his requests to be discharged immediately, despite multiple explanations of the treatment team's concerns with his lack of a good discharge safety plan. He gave various reasons that he did not want to involve his parents and his treatment, stating that they were too busy, he did not want to bother them, did not want to worry them, and that he wanted to be able to control what they were told about his hospitalization. He stated he understood that they would likely learned of his hospitalization when they receive documentation from his insurance company, and wanted to know what exactly the insurance paperwork would say. During his meeting with his friend, Lakeshia, on 12/06/2017, he wanted to speak in [place]ese when asked to explain to her why he was in the hospital, and had to be encouraged to continue the meeting and Bel[place]ian. He did inform her that he has struggled with anxiety and depression, and there was discussion about the need for good communication with his supports. His friend agreed to check in on him, and said she lives very close to him, so he could contact her if needed. She did not have any immediate safety concerns. Records from [facility] received and reviewed: Patient was seen as a walk-in on 2017. He stated that he was "in distress and in need of urgent services." He wanted to know if he was clinically depressed, stating that he was feeling distressed that he was scheduled to graduate in March and had not received job interviews or offers to attend graduate school. He was also upset about a recent relationship, stating that he had known the girl for one month, dated her a few days, and told her that he loved her. He said he cared too much about her, and this had happened in previous relationships as well. He reported variable mood, markedly low in the evenings, and trying to cover up how bad he felt during the day. He endorsed sleep disturbance, daytime fatigue , and had been drinking alcohol to help with sleep (2-3 days a week). He endorsed anhedonia, and suicidal thoughts with occasional plan to jump off a building. It was difficult for him to generate coping strategies and a safety plan, that he ultimately was able to do so. He was unable to come up with other people that he could contact us part of his safety plan, but did agree to call the [facility] crisis line if needed. Day of discharge assessment: The patient had to be aroused from bed, as he was sleeping in the safe room, saying he does not like having a roommate. He states he is feeling "relaxed," and mood has improved since admission, which he attributes to "group activity, and I spoke to a lot of people." He denies SI, and is able to review his safety plan, including talking to his friends, his therapist, calling the crisis line, or going to the ER. He asked appropriate questions about his diagnosis of depression, but declined offers to give him an up-to-date patient handout about it, stating he has already read about it and understands the diagnosis. We discussed treatment options for depression, including medications, therapy, and behavioral interventions such as socializing with friends, engaging in activities he enjoys, stress management, ensuring good sleep and nutrition, and exercise. He remains willing to follow-up with an outpatient therapist at [facility]. He continues to decline medications, but indicates he might be willing to consider them if mood worsens or does not improve with therapy. He is planning to return to class tomorrow. He denies any safety concerns with discharge. Well nourished, well developed male appearing stated age. Casually dressed and adequately groomed. Calm and cooperative. Seated in NAD, with fair eye contact and no abnormal movements. Speech is normal rate, volume, and tone, accented. Mood is "relaxed," and affect is stable and congruent. Thoughts are linear, logical and goal directed. The patient denied suicidal and homicidal ideation and was able to safety plan. No paranoia, delusions, or hallucinations , and did not appear to be responding to internal stimuli. Cognition was grossly intact. Alert and oriented to person, place and time. Intelligence is consistent with level of education. Insight and and judgment are fair. Laboratory Test 12/02/17 14:56 12/02/17 15:25 White Blood Count 4.61 Red Blood Count 5.15 Hemoglobin 15.8 Hematocrit 45.1 Mean Corpuscular Volume 87.6 Mean Corpuscular Hemoglobin 30.7 Mean Corpuscular Hemoglobin Concent 35.0 Platelet Count 232 Mean Platelet Volume 10.3 Neutrophils (%) (Auto) 47.1 Lymphocytes (%) (Auto) 40.6 Monocytes (%) (Auto) 9.5 Eosinophils (%) (Auto) 2.4 Basophils (%) (Auto) 0.2 Neutrophils # (Auto) 2.17 Lymphocytes # (Auto) 1.87 Monocytes # (Auto) 0.44 Eosinophils # (Auto) 0.11 Basophils # (Auto) 0.01 RDW Standard Deviation 42.0 RDW Coefficient of Variation 13.1 Immature Granulocyte % (Auto) 0.2 Immature Granulocyte # (Auto) 0.01 Sodium Level 138 Potassium Level 3.5 Chloride Level 105 Carbon Dioxide Level 26 Anion Gap 7.0 Blood Urea Nitrogen 15 Creatinine 0.93 Est Creatinine Clear Calc Drug Dose 112.8 Estimated GFR () 134.6 Estimated GFR (Non- 116.1 BUN/Creatinine Ratio 16.4 Random Glucose 88 Calcium Level 8.7 Total Bilirubin 1.2 Direct Bilirubin 0.2 Aspartate Amino Transferase (AST) 15 Alanine Aminotransferase (ALT) 17 Alkaline Phosphatase 87 Total Protein 7.7 Albumin 4.3 Thyroid Stimulating Hormone (TSH) 1.170 Ethyl Alcohol mg/dL < 3.0 Urine Color YELLOW Urine Appearance CLEAR Urine pH 6.0 Urine Specific [place]ney 1.026 Urine Protein NEG Urine Glucose (UA) NEG Urine Ketones TRACE Urine Occult Blood NEG Urine Nitrite NEG Urine Bilirubin NEG Urine Urobilinogen NEG Urine Leukocyte Esterase NEG Urine Opiates Screen NEG Urine Methadone, Qualitative NEG Urine Barbiturates NEG Urine Phencyclidine (PCP) Level NEG Ur Amphetamine/Methamphetamine NEG MDMA (Ecstasy) Screen NEG Urine Benzodiazepines Screen NEG Urine Cocaine Metabolite NEG Urine Marijuana (THC) NEG Total Time Total Time Spent (min): Greater than 30 minutes Total Time Included: examination of the patient, discharge planning, medication reconciliation Tobacco Cessation at Discharge Smoking Status: Never Smoker FDA approved Prescription: non-smoker
== END 2017-12-07 10:51 | disposition home or self-care (01) | DRG 885 ==
LOC: C.EDA 14:14 → C.MHU 20:27 → ENRESERV 20:43
PROVIDERS: ADMIT Psychiatry & Neurology Child & Adolescent Psychiatry; ATTEND Psychiatry & Neurology Psychiatry
DX: F32.2 Major depressive disorder, single episode, severe without psychotic features (principal); R45.851 Suicidal ideations